=== PATIENT | male | born 1960 | race Caucasian/White ===

== ENCOUNTER 2022-01-29 09:36 | Emergency (ER) | payer SELFPAY ==
[2022-01-29] MEDS ORDERED: Ketorolac Tromethamine 30 MG/ML VIAL ONE (10:55)
[2022-01-29] MEDS ORDERED: diphenhydrAMINE 25 MG CAP ONE (10:55)
[2022-01-29] MEDS ORDERED: Dexamethasone 10 MG/ML VIAL ONE (10:55)
== END 2022-01-29 12:05 | disposition home or self-care (01) ==
LOC: CSHERS 09:36
DX: J32.9 Chronic sinusitis, unspecified (principal); R03.0 Elevated blood-pressure reading, without diagnosis of hypertension; Z20.822 Contact with and (suspected) exposure to COVID-19
CPT/HCPCS: 96372; 99284; J1100; J1885; U0003; U0005